=== PATIENT | female | born 1970 | race Caucasian/White ===

== ENCOUNTER 2018-10-16 19:15 | Inpatient (IN) | payer OTHER ==
[~2018-10-16] VITALS: Ht 157.5 cm; Wt 84.4 kg
[2018-10-16 19:18] VITALS: BP_SYST 156
[2018-10-16] MEDS ORDERED: ADENOSINE 6MG/2ML VIAL ONE (19:28)
[2018-10-16] MEDS ORDERED: MAGNESIUM SULFATE 100 ML IV ONE (19:29)
[2018-10-16] MEDS ORDERED: MAGNESIUM SULFATE 4 GM in D5W 250 ML IV ONE (19:30)
[2018-10-16] MEDS ORDERED: ADENOSINE 6MG/2ML VIAL IVP ONE (19:30)
[2018-10-16] MEDS ORDERED: MAGNESIUM SULFATE 50 ML IV ONE ×2 (19:45)
[2018-10-16 19:47] LABS: PROTHROMBIN TIME 9.9 SECS (9.5-12.5)
[2018-10-16 19:49] LABS: CALCIUM 8.6 mg/dL (8.4-11.0); CREATININE 0.76 mg/dL (0.55-1.30); POTASSIUM 3.5 mmol/L (3.5-5.1)
[2018-10-16 19:51] LABS: MEAN CORPUSCULAR HEMOGLOBIN 23 pg (27-31); MEAN CORPUSCULAR HGB CONC 33 % (32-36); MEAN CORPUSCULAR VOLUME 71 fL (79.0-98.0); PLATELET COUNT (AUTO) 331 K/uL (130-430); RED BLOOD CELL COUNT(AUTO) 5.63 MIL/uL (4.2-6.2); RED CELL DISTRIBUTION WIDTH 14.8 % (9.0-15.0); WHITE BLOOD COUNT (AUTO) 8.8 K/uL (4.8-10.8)
[2018-10-16 19:52] LABS: EOSINOPHILS % (AUTO) 1.6 % (0.0-4.0); LYMPHOCYTES # (AUTO) 4.8 K/uL (1.0-5.5); LYMPHOCYTES % (AUTO) 54.5 % (20.5-51.5); MONOCYTES % (AUTO) 8.4 % (1.7-9.3); NEUTROPHILS % (AUTO) 34.5 % (40.0-70.0)
[2018-10-16 19:54] LABS: BASOPHILS # (AUTO) 0.1 K/uL (0.0-0.2); EOSINOPHILS # (AUTO) 0.1 K/uL (0.0-0.4); MONOCYTES # (AUTO) 0.7 K/uL (0.0-1.0)
[2018-10-16] MEDS ORDERED: DILTIAZEM HCL 25 MG/5 ML VIAL IVP ONE (20:00)
[2018-10-16 20:07] LABS: TOTAL BILIRUBIN 0.2 mg/dL (0.0-1.0)
[2018-10-16 20:08] LABS: ALBUMIN 2.9 g/dL (3.4-4.8)
[2018-10-16] MEDS ORDERED: DILTIAZEM HCL 60 MG TABLET PO ONE (20:30)
[2018-10-16] MEDS ORDERED: METHIMAZOLE 5 MG TABLET PO ONE (20:45)
[2018-10-16 20:49] LABS: BILIRUBIN,URINE NEGATIVE (NEGATIVE); BLOOD, URINE 1+ (NEGATIVE); CLARITY/URINE CLEAR (CLEAR); COLOR,URINE YELLOW (YELLOW); GLUCOSE,URINE NEGATIVE (NEGATIVE); KETONES,URINE NEGATIVE (NEGATIVE); LEUKOCYTE ESTERASE ,URINE TRACE (NEGATIVE); NITRITE, URINE NEGATIVE (NEGATIVE); PROTEIN URINE NEGATIVE (NEGATIVE); UROBILINOGEN,URINE 0.2 (0.2-1.0)
[2018-10-16 21:09] LABS: BACTERIA,URINE RARE /HPF (None Seen); MUCUS,URINE None Seen /LPF (None Seen)
[2018-10-16] MEDS ORDERED: DILTIAZEM HCL 125 MG in D5W 100 ML IV ONE ×2 (21:15→22:15)
[2018-10-16] MEDS ORDERED: DILTIAZEM HCL 125 MG/25 ML VIAL IV ONE (21:31)
[2018-10-16] MEDS ORDERED: METH5TAB70 PO (22:11)
[2018-10-16] MEDS ORDERED: AMOX-423 PO (22:11)
[2018-10-16 22:40] VITALS: BP_SYST 125
[2018-10-16 23:00] VITALS: BP_SYST 111
[2018-10-17] VITALS (24 sets, daily range): BP systolic 97–127
[2018-10-17] MEDS ORDERED: DILTIAZEM HCL 125 MG in D5W 100 ML IV SCH (00:15)
[2018-10-17] MEDS ORDERED: DILTIAZEM HCL 125 MG/25 ML VIAL IV ONE ×2 (04:07)
[2018-10-17 05:53] LABS: RED BLOOD CELL COUNT(AUTO) 5.21 MIL/uL (4.2-6.2); WHITE BLOOD COUNT (AUTO) 6.7 K/uL (4.8-10.8)
[2018-10-17 05:54] LABS: HEMATOCRIT 36.8 % (36-48); HEMOGLOBIN 11.8 g/dL (12.0-16.0); MEAN CORPUSCULAR HEMOGLOBIN 23 pg (27-31); MEAN CORPUSCULAR HGB CONC 32 % (32-36); MEAN CORPUSCULAR VOLUME 71 fL (79.0-98.0); MONOCYTES % (AUTO) 7.9 % (1.7-9.3); PLATELET COUNT (AUTO) 303 K/uL (130-430); RED CELL DISTRIBUTION WIDTH 14.7 % (9.0-15.0)
[2018-10-17 05:55] LABS: BASOPHILS # (AUTO) 0.1 K/uL (0.0-0.2); BASOPHILS % (AUTO) 1.8 % (0.0-2.0); EOSINOPHILS # (AUTO) 0.2 K/uL (0.0-0.4); LYMPHOCYTES # (AUTO) 3.8 K/uL (1.0-5.5); MONOCYTES # (AUTO) 0.5 K/uL (0.0-1.0)
[2018-10-17 05:58] LABS: LYMPHOCYTES % (AUTO) 57.4 % (20.5-51.5); NEUTROPHILS % (AUTO) 29.9 % (40.0-70.0)
[2018-10-17 06:11] LABS: CALCIUM 8.5 mg/dL (8.4-11.0); CREATININE 0.72 mg/dL (0.55-1.30); POTASSIUM 3.9 mmol/L (3.5-5.1)
[2018-10-17] MEDS ORDERED: METHIMAZOLE 5 MG TABLET PO ONE (09:00)
[2018-10-17] MEDS ORDERED: PROPRANOLOL HCL 10 MG TABLET (INDERAL) PO ONE (09:00)
[2018-10-17] MEDS: PROPRANOLOL HCL 10 MG TABLET (INDERAL) PO SCH ×2 (13:49→21:27)
[2018-10-17] MEDS ORDERED: METHIMAZOLE 5 MG TABLET PO SCH (14:00)
[2018-10-17] MEDS: METHIMAZOLE 5 MG TABLET PO SCH (21:25)
[2018-10-18] VITALS (9 sets, daily range): BP systolic 95–122
[2018-10-18] MEDS: PROPRANOLOL HCL 10 MG TABLET (INDERAL) PO SCH (05:42)
[2018-10-18 07:03] LABS: CALCIUM 8.8 mg/dL (8.4-11.0); CREATININE 0.68 mg/dL (0.55-1.30)
[2018-10-18 07:17] LABS: FREE T4 (FREE THYROXINE) 2.7 ng/dl (0.8-1.5)
[2018-10-18] MEDS: METHIMAZOLE 5 MG TABLET PO SCH ×2 (08:27→08:37)
[2018-10-18] MEDS ORDERED: ASPIRIN 81 MG TABLET(ECOTRIN) PO SCH (09:00)
[2018-10-18] MEDS ORDERED: METH10TA80 PO (12:12)
[2018-10-18] MEDS ORDERED: ASPI-1155 PO (12:13)
[2018-10-18] MEDS ORDERED: PROP10TA10 PO (12:13)
== END 2018-10-18 12:35 | disposition home or self-care (01) | DRG 645 ==
LOC: SED 19:15 → SMU 22:10 → SIC 22:28
PROVIDERS: ADMIT Internal Medicine Hospice and Palliative Medicine; ATTEND Internal Medicine Hospice and Palliative Medicine
DX: E05.90 Thyrotoxicosis, unspecified without thyrotoxic crisis or storm (principal); I48.91 Unspecified atrial fibrillation; K21.9 Gastro-esophageal reflux disease without esophagitis; I10 Essential (primary) hypertension; Z90.710 Acquired absence of both cervix and uterus; Z84.89 Family history of other specified conditions
CPT/HCPCS: 36415; 71045; 80048; 80053; 81000-TC; 83735-TC; 83880; 84439; 84443-TC; 84480; 84484; 85025; 85610-TC; 87081; 87086; 93005; 93306; 96374; 96375; 99285; J0153; J3475; J3490; J7060